=== PATIENT | male | born 1970 | race Caucasian/White ===

== ENCOUNTER 2018-01-17 18:44 | Emergency (ER) | payer OTHER ==
[2018-01-17 19:44] VITALS: BP 126/76
[2018-01-17] MEDS ORDERED: Oseltamivir CAP* 75 MG CAP PO ONE (20:17)
--- NOTE | 2018-01-17 20:25 | UC ---
Kory Langley Gabriel, scribed for Dieudonne Trevino MD on 01/17/18 at 2002 . FLU HPI - HPI Summary HPI Summary: This patient is a 47 year old M presenting to [facility] [place] accompanied by his with a chief complaint of cold symptoms since 01-13-18. The patient rates the pain 0/10 in severity. Patient reports fatigue, fever, weakness, and productive cough. Patient denies sore throat, rhinorrhea, and sore throat. - History of Current Complaint Chief Complaint: UCGeneralIllness Stated Complaint: FLU-LIKE Time Seen by Provider: 01/17/18 19:49 Hx Obtained From: Patient Onset/Duration: Lasting Days, Still Present Severity Currently: Moderate Severity Initially: Mild Pain Intensity: 0 Pain Scale Used: 0-10 Numeric Associated Signs & Symptoms: Positive: Fever, Cough. Negative: Sore Throat - Allergy/Home Medications Allergies/Adverse Reactions: Allergies Allergy/AdvReac Type Severity Reaction Status Date / Time Penicillins Allergy Rash Verified 01/17/18 19:44 PMH/Surg Hx/FS Hx/Imm Hx Previously Healthy: Yes Other History Of: Negative For: HIV, Hepatitis B, Hepatitis C - Surgical History Surgical History: None - Family History Known Family History: Negative: Cardiac Disease, Hypertension, Diabetes, Renal Disease, Respiratory Disease, Seizure Disorder, Blood Disorder - Social History Occupation: Employed Full-time Lives: With Family Alcohol Use: None Substance Use Type: None Smoking Status (MU): Never Smoked Tobacco Review of Systems Constitutional: Fever, Fatigue Respiratory: Cough Neurological: Weakness All Other Systems Reviewed And Are Negative: Yes Physical Exam Triage Information Reviewed: Yes Vital Signs: Initial Vital Signs Temp 97.5 F 01/17/18 19:41 Pulse 101 01/17/18 19:41 Resp 20 01/17/18 19:41 BP 126/76 01/17/18 19:41 Pulse Ox 100 01/17/18 19:41 Vital Signs Reviewed: Yes - Additional Comments VITAL SIGNS: Reviewed. GENERAL: Patient is a well developed and nourished M who is lying comfortable in the stretcher. Patient is not in any acute respiratory distress. HEAD AND FACE: Normocephalic EYES: PERRLA, EOMI x 2. EARS: Hearing grossly intact. MOUTH: Oropharynx within normal limits. NECK: Supple, trachea is midline, no adenopathy, no JVD, no carotid bruit. CHEST: Symmetric, no tenderness at palpation LUNGS: Clear to auscultation bilaterally. No wheezing or crackles. CVS: Regular rate and rhythm, S1 and S2 present, no murmurs or gallops appreciated. ABDOMEN: Soft, non-tender. Bowel sounds are normal. No abdominal abnormal pulsations. EXTREMITIES: Full ROM in all major joints, no edema, no cyanosis or clubbing. NEURO: Alert and oriented x 3. No acute neurological deficits. Speech is normal and follows commands. SKIN: Dry and warm Flu Course/Dx - Course Course Of Treatment: Patient was negative for influenza A but was positive for B. I discussed all the findings and test results with the patient. Pt was instructed to return to the urgent care or go to ER immediately if any of the symptoms return or worsens. Plan of care was discussed with the patient and pt understands and agrees. All questions were answered to patient satisfaction. There were no further complaints or concerns. Patient was diagnosed with influenza B after a positive swab. Medication administered. The patient was found to have increase BP in UC. The patient will follow up with PCP for better control of BP. - Differential Dx/Diagnosis Differential Diagnosis/HQI/PQRI: Bronchitis, Influenza, Pneumonia, Upper Respiratory Infection Provider Diagnoses: Elevated blood pressure without history of hypertension, influenza B Discharge - Discharge Plan Condition: Stable Disposition: HOME Prescriptions: Oseltamivir CAP* [Tamiflu CAP*] 75 mg PO BID #10 cap Patient Education Materials: Influenza (ED) Forms: *Work Release Referrals: No Primary Care Phys,NOPCP [Primary Care Provider] - Additional Instructions: Your blood pressure was elevated during todays visit; please follow up with your primary care provider within a week for further evaluation. Take medications as instructed Increase your fluid intake Return to the UC if symptoms worsen The documentation as recorded by the Kory villalta Gabriel accurately reflects the service I personally performed and the decisions made by me, Dieudonne Trevino MD.
== END 2018-01-17 20:48 | disposition home or self-care (01) ==
LOC: UCEAST 18:44
DX: J10.1 Influenza due to other identified influenza virus with other respiratory manifestations (principal); R03.0 Elevated blood-pressure reading, without diagnosis of hypertension
CPT/HCPCS: 87502; 99212; A9270-GY; G0463